=== PATIENT | female | born 2000 | race Caucasian/White ===

== ENCOUNTER → 2019-04-17 | Outpatient (CLI) | payer BC ==
[2019-04-19 03:07] LABS: CHLAMYDIA TRACHOMATIS, NAA Positive (Negative); NEISSERIA GONORRHOEAE, NAA Negative (Negative)
== END | disposition home or self-care (01) ==
LOC: LAB EV 11:24 → LAB SHORT 11:24
PROVIDERS: Physician Assistant
DX: Z72.51 High risk heterosexual behavior (principal)
CPT/HCPCS: 87070; 87147; 87205; 87491; 87591

== ENCOUNTER 2019-11-29 08:16 | Day surgery (SDC) | payer OTHER, BC ==
[~2019-11-29] VITALS: Ht 177.8 cm; Wt 69.5 kg
[~2019-11-29 08:16] MED LIST: Sprintec1 EACH PO; [UNRECOGNIZED DRUG - OTHER] PO
--- NOTE | 2019-11-29 11:26 | NUR ---
11/29/19 1126 Karol Lopez S LOWER ABD CRAMPING & STATES "IT HURTS." PT. ALSO C/O SHOULDERS HURTING & EXPLAINED TO PT. THATS FROM THE CO2 USED DURING SURGERY BY DR. BUSTOS. RATES PAIN AN 8 2, WILL MEDICATE FOR PAIN PER DR. ANTOINE.
--- NOTE | 2019-11-29 11:56 | NUR ---
11/29/19 1156 CORINNA MENA PATIENT UP TO RECLINER . TOLERATING PO INTAKE, MEDICATED PER ANESTHESIA ORDERS FOR PAIN.
== END 2019-11-29 13:30 | disposition home or self-care (01) ==
LOC: ORSCSDS 08:16
PROVIDERS: Obstetrics & Gynecology
PROC: 0U5F4ZZ Destruction of Cul-de-sac, Percutaneous Endoscopic Approach (ICD-10-PCS; principal; 2019-11-29 09:30)
DX: N92.0 Excessive and frequent menstruation with regular cycle (principal); N94.6 Dysmenorrhea, unspecified; N94.10 Unspecified dyspareunia; R10.2 Pelvic and perineal pain; N80.3 Endometriosis of pelvic peritoneum; K66.0 Peritoneal adhesions (postprocedural) (postinfection)
CPT/HCPCS: 88305; J0171; J0690; J1100; J1885; J2250; J2405; J3010; J7120